=== PATIENT | male | born 1980 | race Caucasian/White ===

== ENCOUNTER → 2017-11-10 | Outpatient (CLI) | payer BC ==
[~2017-11-10] VITALS: Ht 184.2 cm; Wt 189.1 kg
[~2017-11-10] MED LIST: ACTOS30 MG PO; CLEOCIN HCL300 MG PO; ELIQUIS 5MG PO; GLUCOPHAGE500 MG PO; GLUCOPHAGE500 MG/TAB PO; INSLANT SQ; LEVEMIR FLEX100 U/ML SQ; LIPITOR 40MG TA40 MG PO; LISINOPRIL5 MG PO; LORTAB 5/500 501 TAB PO; METFORMIN; MOBIC15 MG PO; NO HOME MEDICATIONS; NOVOLOG FLEX100 U/ML SQ; PERCOCET 325 MG1 TA2 PO; ZESTRIL 10MG10 MG PO; ZITHROMAX Z PA250 MG PO
[2017-11-10 14:25] VITALS: BP 116/66; PULSE 100
== END ==
LOC: LIGHT 08:27
DX: E11.9 Type 2 diabetes mellitus without complications (principal); E88.81 Metabolic syndrome and other insulin resistance; E78.5 Hyperlipidemia, unspecified; E66.01 Morbid (severe) obesity due to excess calories; Z68.43 Body mass index [BMI] 50.0-59.9, adult; Z71.3 Dietary counseling and surveillance
CPT/HCPCS: G0463

== ENCOUNTER → 2017-11-24 | Outpatient (CLI) | payer BC | LOC: LIGHT 08:03 | DX: E11.65 Type 2 diabetes mellitus with hyperglycemia (principal); E03.9 Hypothyroidism, unspecified; E66.01 Morbid (severe) obesity due to excess calories; Z71.3 Dietary counseling and surveillance | CPT/HCPCS: G0463 ==

== ENCOUNTER → 2017-12-05 | Outpatient (CLI) | payer BC ==
[~2017-12-05] VITALS: Ht 184.2 cm; Wt 191.4 kg
== END ==
LOC: LIGHT 09:36
DX: E11.65 Type 2 diabetes mellitus with hyperglycemia (principal); E88.81 Metabolic syndrome and other insulin resistance; E78.5 Hyperlipidemia, unspecified; E66.01 Morbid (severe) obesity due to excess calories; Z71.3 Dietary counseling and surveillance

== ENCOUNTER → 2017-12-15 | Outpatient (CLI) | payer BC ==
[~2017-12-15] VITALS: Ht 184.2 cm; Wt 190.7 kg
[~2017-12-15] MED LIST changes: +ERGOCALCIFER50000 IU PO
[2017-12-15 10:39] VITALS: BP 108/60; PULSE 68
== END ==
LOC: LIGHT 10:16
DX: E11.65 Type 2 diabetes mellitus with hyperglycemia (principal); E88.81 Metabolic syndrome and other insulin resistance; E78.5 Hyperlipidemia, unspecified; E66.01 Morbid (severe) obesity due to excess calories; Z68.43 Body mass index [BMI] 50.0-59.9, adult; Z71.3 Dietary counseling and surveillance
CPT/HCPCS: G0463

== ENCOUNTER → 2017-12-21 | Outpatient (CLI) | payer BC | LOC: BHSO 08:57 | DX: E11.65 Type 2 diabetes mellitus with hyperglycemia (principal); E78.5 Hyperlipidemia, unspecified; E66.01 Morbid (severe) obesity due to excess calories; Z68.43 Body mass index [BMI] 50.0-59.9, adult; Z71.3 Dietary counseling and surveillance ==

== ENCOUNTER → 2018-01-30 | Outpatient (CLI) | payer BC | LOC: LIGHT 13:53 | DX: E11.65 Type 2 diabetes mellitus with hyperglycemia (principal); E88.81 Metabolic syndrome and other insulin resistance; E78.5 Hyperlipidemia, unspecified; E66.01 Morbid (severe) obesity due to excess calories; Z68.43 Body mass index [BMI] 50.0-59.9, adult; Z71.3 Dietary counseling and surveillance ==

== ENCOUNTER 2018-02-01 09:19 | Day surgery (SDC) | payer BC ==
[~2018-02-01] VITALS: Ht 182.9 cm; Wt 189.0 kg
[2018-02-01] VITALS (9 sets, daily range): BP systolic 121–165; BP diastolic 60–88; PULSE 60–102; TEMP 98.5–98.6
[2018-02-01 10:42] LABS: CALCIUM 9.7 mg/dL (8.4-10.2); CREATININE, serum 0.73 mg/dL (0.66-1.25); POTASSIUM 4.2 mmol/L (3.4-5.0)
[2018-02-02 00:23] VITALS: BP 121/85; PULSE 115; TEMP 98.5
[2018-02-02 04:28] VITALS: BP 134/62; PULSE 116; TEMP 99.1
[2018-02-02 07:45] VITALS: BP 155/93; PULSE 109; TEMP 97.9
[2018-02-02 09:53] VITALS: BP 141/76
[2018-02-02 11:53] VITALS: BP 141/81; PULSE 96; TEMP 98.7
[2018-02-02 15:01] VITALS: BP 151/86; PULSE 92; TEMP 98.5
== END 2018-02-02 18:10 | disposition home or self-care (01) ==
LOC: SDCO 09:19 → SURG 15:55 → SDCO 02-02 18:10
PROVIDERS: Nurse Anesthetist, Certified Registered
DX: E66.01 Morbid (severe) obesity due to excess calories (principal); E11.9 Type 2 diabetes mellitus without complications; E78.00 Pure hypercholesterolemia, unspecified; G47.30 Sleep apnea, unspecified; M19.90 Unspecified osteoarthritis, unspecified site; E88.81 Metabolic syndrome and other insulin resistance; Z68.43 Body mass index [BMI] 50.0-59.9, adult; Z86.718 Personal history of other venous thrombosis and embolism; Z79.01 Long term (current) use of anticoagulants; Z79.4 Long term (current) use of insulin; Z88.5 Allergy status to narcotic agent; I10 Essential (primary) hypertension; G47.33 Obstructive sleep apnea (adult) (pediatric); F32.9 Major depressive disorder, single episode, unspecified
CPT/HCPCS: OP; J0690; J1170; J1650; J1815; J1885; J2250; J2370; J2405; J2550; J2704; J3010; J7030

== ENCOUNTER → 2018-03-20 | Outpatient (CLI) | payer BC ==
[~2018-03-20] VITALS: Ht 182.9 cm; Wt 170.3 kg
[2018-03-20 16:44] VITALS: BP 96/76; PULSE 84
== END ==
LOC: LIGHT 14:16
DX: E11.65 Type 2 diabetes mellitus with hyperglycemia (principal); Z98.84 Bariatric surgery status; E78.5 Hyperlipidemia, unspecified; E66.01 Morbid (severe) obesity due to excess calories; Z68.43 Body mass index [BMI] 50.0-59.9, adult; Z71.3 Dietary counseling and surveillance

== ENCOUNTER → 2018-05-01 | Outpatient (CLI) | payer BC ==
[~2018-05-01] VITALS: Ht 182.9 cm; Wt 161.5 kg
== END ==
LOC: LIGHT 10:03
DX: E11.65 Type 2 diabetes mellitus with hyperglycemia (principal); Z98.84 Bariatric surgery status; E78.5 Hyperlipidemia, unspecified; E66.01 Morbid (severe) obesity due to excess calories; Z68.42 Body mass index [BMI] 45.0-49.9, adult; Z71.3 Dietary counseling and surveillance

== ENCOUNTER → 2018-07-24 | Outpatient (CLI) | payer BC ==
[~2018-07-24] VITALS: Ht 182.9 cm; Wt 142.7 kg
[2018-07-24 16:30] VITALS: BP 120/60; PULSE 88
== END ==
LOC: LIGHT 11:28
DX: E11.65 Type 2 diabetes mellitus with hyperglycemia (principal); Z98.84 Bariatric surgery status; E78.5 Hyperlipidemia, unspecified; E66.01 Morbid (severe) obesity due to excess calories; Z68.41 Body mass index [BMI] 40.0-44.9, adult; Z71.3 Dietary counseling and surveillance
CPT/HCPCS: G0463